=== PATIENT | male | born 1950 | race Two or more races ===

== ENCOUNTER 2021-08-29 15:26 | Emergency (ER) | payer MEDICARE, OTHER ==
[~2021-08-29] VITALS: Ht 177.8 cm; Wt 113.6 kg
[2021-08-29] MEDS ORDERED: methylPREDNISolone sod succ 125mg/2ml vial IV ONE (15:40)
[2021-08-29] MEDS ORDERED: ipratropium/albuterol 3ml nebule NEB ONE (15:40)
[2021-08-29 16:03] LABS: BASOPHILS % (AUTO) 0.4 % (0-1); EOSINOPHILS % (AUTO) 0.1 % (0-6); HEMATOCRIT 51.2 % (42.0-52.0); HEMOGLOBIN 17.6 g/dl (14.0-17.9); LYMPHOCYTES # (AUTO) 0.9 X10'3 (1.1-4.8); LYMPHOCYTES % (AUTO) 18.2 % (21-51); MEAN CORPUSCULAR HEMOGLOBIN 32.1 PG (27.0-31.0); MEAN CORPUSCULAR HGB CONC 34.3 g/dL (33.0-36.5); MEAN CORPUSCULAR VOLUME 93.6 FL (78-98); MEAN PLATELET VOLUME 7.4 FL (7.4-10.4); MONOCYTES # (AUTO) 1.2 X10'3 (0-0.9); MONOCYTES % (AUTO) 23.1 % (2-12); NEUTROPHILS # (AUTO) 2.9 X10'3 (1.8-7.7); NEUTROPHILS % (AUTO) 58.2 % (42-75); PLATELET COUNT 186 X10'3 (140-440); RED BLOOD COUNT 5.47 X10'6 (4.70-6.10); RED CELL DISTRIBUTION WIDTH 13.5 % (11.5-14.5)
[2021-08-29 16:19] LABS: ALANINE AMINOTRANSFERASE 58 U/L (12-78); ALBUMIN 3.6 G/DL (3.4-5.0); ALBUMIN/GLOBULIN RATIO 0.9 (1.1-1.5); ALKALINE PHOSPHATASE 85 IU/L (46-116); ANION GAP 10 (8-16); ASPARTATE AMINO TRANSFERASE 33 U/L (10-37); BILIRUBIN,TOTAL 0.5 MG/DL (0.1-1.0); BLOOD UREA NITROGEN 15 MG/DL (7-18); CALCIUM 8.6 MG/DL (8.5-10.1); CHLORIDE 102 MMOL/L (99-107); GLUCOSE 99 MG/DL (70-104); SODIUM 137 MMOL/L (135-145); TOTAL CARBON DIOXIDE 24.7 MMOL/L (24-32); TOTAL PROTEIN 7.5 G/DL (6.4-8.2); eGFR 74 ML/MIN
[2021-08-29] MEDS ORDERED: CefTRIAXone 2gm/NS 100ml IVPB 100 ML IV ONE (17:50)
[2021-08-29] MEDS ORDERED: albuterol 2.5 MG/3 ML nebule NEB ONE (17:50)
[2021-08-29] MEDS ORDERED: BUDE180A INH (17:53)
[2021-08-29] MEDS ORDERED: CEPH250T PO (17:53)
[2021-08-29] MEDS ORDERED: DOXY100C77 PO (17:53)
[2021-08-29] MEDS ORDERED: PRED20TA PO (17:53)
[2021-08-29] MEDS ORDERED: ALBU6.7H9 INH (17:53)
--- NOTE | 2021-08-29 17:55 | NUR ---
paged rt at this time for [email or web address].
[2021-08-29 18:58] VITALS: BP 169/77
== END 2021-08-29 19:00 | disposition home or self-care (01) ==
LOC: ER 15:28
DX: J40 Bronchitis, not specified as acute or chronic (principal); J44.1 Chronic obstructive pulmonary disease with (acute) exacerbation; R05.9 Cough, unspecified; R06.02 Shortness of breath; Z72.0 Tobacco use; Z86.73 Personal history of transient ischemic attack (TIA), and cerebral infarction without residual deficits; Z79.2 Long term (current) use of antibiotics; Z79.899 Other long term (current) drug therapy
CPT/HCPCS: 36415; 71045; 80053; 85025; 93005; 94640; 96365; 96375; 99285; J0696; J2930; 94760

== ENCOUNTER 2022-10-28 21:46 | Emergency (ER) | payer MEDICARE ==
[~2022-10-28] VITALS: Ht 177.8 cm; Wt 122.7 kg
[~2022-10-28 21:46] MED LIST: ALBU6.7H14 INH; BUDE180A INH
[2022-10-28 22:39] LABS: BASOPHILS % (AUTO) 0.3 % (0-1); EOSINOPHILS # (AUTO) 0.1 X10'3 (0-0.9); EOSINOPHILS % (AUTO) 1.9 % (0-6); HEMOGLOBIN 16.1 g/dl (14.0-17.9); LYMPHOCYTES # (AUTO) 0.5 X10'3 (1.1-4.8); LYMPHOCYTES % (AUTO) 7.8 % (21-51); MEAN CORPUSCULAR HEMOGLOBIN 32.3 PG (27.0-31.0); MEAN CORPUSCULAR HGB CONC 34.2 g/dL (33.0-36.5); MEAN CORPUSCULAR VOLUME 94.5 FL (78-98); MEAN PLATELET VOLUME 7.1 FL (7.4-10.4); NEUTROPHILS # (AUTO) 5.1 X10'3 (1.8-7.7); PLATELET COUNT 222 X10'3 (140-440); RED BLOOD COUNT 4.97 X10'6 (4.70-6.10); RED CELL DISTRIBUTION WIDTH 13.5 % (11.5-14.5); WHITE BLOOD COUNT 6.7 X10'3 (4.5-11.0)
[2022-10-28 22:52] LABS: ALANINE AMINOTRANSFERASE 82 U/L (12-78); ALBUMIN 3.5 G/DL (3.4-5.0); ALBUMIN/GLOBULIN RATIO 0.9 (1.1-1.5); ALKALINE PHOSPHATASE 81 IU/L (46-116); ANION GAP 11 (8-16); ASPARTATE AMINO TRANSFERASE 49 U/L (10-37); BILIRUBIN,TOTAL 0.5 MG/DL (0.1-1.0); BLOOD UREA NITROGEN 21 MG/DL (7-18); BUN/CREATININE RATIO 17.4 (10.0-20.0); CALCIUM 9.1 MG/DL (8.5-10.1); CHLORIDE 99 MMOL/L (99-107); CREATININE 1.21 MG/DL (0.60-1.10); GLUCOSE 136 MG/DL (70-104); POTASSIUM 4.4 MMOL/L (3.5-5.1); SODIUM 133 MMOL/L (135-145); TOTAL CARBON DIOXIDE 22.9 MMOL/L (24-32); TOTAL PROTEIN 7.2 G/DL (6.4-8.2); eGFR 59 ML/MIN
[2022-10-28 23:10] LABS: TOTAL CELLS COUNTED 100
[2022-10-28 23:11] LABS: PLATELET ESTIMATE NORMAL
[2022-10-28 23:29] LABS: GLUCOSE, URINE NEGATIVE (Neg); KETONES,URINE 15 mg/dl (Neg); LEUKOCYTE ESTERASE ,URINE NEGATIVE (Neg); NITRITES, URINE NEGATIVE (Neg); OCCULT BLOOD,URINE NEGATIVE (Neg); PROTEIN,URINE TRACE mg/dl (Neg)
[2022-10-28 23:34] LABS: CLARITY,URINE SLIGHTLY CLOUDY (Clear); COLOR,URINE DARK YELLOW (Yellow); UA COLLECTION TYPE VOIDED
[2022-10-28 23:37] LABS: WBC,URINE 0-4 /HPF (0-4)
[2022-10-28 23:38] LABS: BACTERIA,URINE 1+ /HPF (Neg); MUCUS STRANDS FEW /LPF (Neg); RBC,URINE 0-2 /HPF (0-2); SQUAMOUS EPITHELIAL CELL,UR MODERATE /LPF (FEW); TRANSITIONAL EPI CELLS,URINE FEW /HPF
[2022-10-29] MEDS ORDERED: methylPREDNISolone sod succ 125mg/2ml vial IV ONE (00:50)
[2022-10-29] MEDS ORDERED: ondansetron/PF 4mg/2ml inj IV ONE (00:50)
[2022-10-29] MEDS ORDERED: normal saline 1000ML IV soln IVB ONE (00:50)
[2022-10-29] MEDS ORDERED: morphine 4 MG/ML inj SYRINge IV ONE (00:50)
[2022-10-29] MEDS ORDERED: albuterol 2.5 MG/3 ML nebule CONTNEB PRN (00:55)
[2022-10-29] MEDS ORDERED: ipratropium/albuterol 3ml nebule NEB PRN (01:10)
[2022-10-29] MEDS ORDERED: albuterol 2.5 MG/3 ML nebule NEB ONE (01:10)
[2022-10-29 01:30] LABS: D-DIMER 3.79 MG/L FEU (0-0.50)
[2022-10-29] MEDS ORDERED: iohexol 350MG/ML 100ml bottle IV ONE (02:05)
[2022-10-29] MEDS ORDERED: PRED20TA PO (03:50)
[2022-10-29] MEDS ORDERED: ALBU8HFA PO (03:50)
[2022-10-29] MEDS ORDERED: LEVO-65 PO (03:50)
[2022-10-29 04:00] VITALS: BP 118/67
== END 2022-10-29 04:29 | disposition home or self-care (01) ==
LOC: ER 21:49
DX: J44.1 Chronic obstructive pulmonary disease with (acute) exacerbation (principal); I10 Essential (primary) hypertension; Z79.899 Other long term (current) drug therapy
CPT/HCPCS: 36415; 71045; 71275; 80053; 81001; 83605; 83880; 84145; 84484; 85007; 85025; 85379; 87040; 93005; 94640; 96361; 96374; 96375; 99285; J2270; J2405; J2930; J3490; J7030; Q9967; 94760